=== PATIENT | male | born 1955 | race Hispanic/Latino ===

== ENCOUNTER 2024-05-19 14:26 | Emergency (ER) | payer MEDICARE ==
[~2024-05-19] VITALS: Ht 165.1 cm; Wt 87.1 kg
[2024-05-19 15:06] LABS: BASOPHILS # (AUTO) 0.04 K/uL (0.00-0.20); EOSINOPHILS # (AUTO) 0.26 K/uL (0.00-0.70); EOSINOPHILS % (AUTO) 6.2 % (0.0-8.0); HEMATOCRIT 40.4 % (42-54); IMMATURE GRANULOCYTE ABSOLUTE 0.03 K/uL (0-1); LYMPHOCYTES # (AUTO) 1.8 K/uL (1.0-4.8); LYMPHOCYTES % (AUTO) 41.6 % (21.0-51.0); MEAN CORPUSCULAR HEMOGLOBIN 30.3 pg (27.0-33.0); MEAN CORPUSCULAR HGB CONC 32.9 g/dL (32.0-36.0); MONOCYTES # (AUTO) 0.5 K/uL (0.1-1.0); MONOCYTES % (AUTO) 12.1 % (3.0-13.0); NEUTROPHILS # (AUTO) 1.6 K/uL (1.8-7.7); NEUTROPHILS % (AUTO) 38.4 % (40.0-77.0); PLATELET COUNT (AUTO) 209 K/uL (130-400); RED BLOOD CELL COUNT(AUTO) 4.39 MIL/uL (4.50-6.20); RED CELL DISTRIBUTION WIDTH 14.1 % (11.0-15.5); WHITE BLOOD COUNT (AUTO) 4.2 K/uL (4.8-10.8)
[2024-05-19 15:14] LABS: CREATININE 1.5 mg/dL (0.5-1.3)
[2024-05-19] MEDS ORDERED: METF-444 PO (15:24)
[2024-05-19] MEDS: INSULIN humuLIN R 100 UNIT/ML 3ML SQ ONE (15:27)
[2024-05-19 17:03] VITALS: BP 133/72; PULSE 76; RESP 18; TEMP 97.9; O2SAT 97
== END 2024-05-19 17:07 | disposition home or self-care (01) ==
LOC: EDH 14:26
DX: I10 Essential (primary) hypertension (principal); E11.65 Type 2 diabetes mellitus with hyperglycemia; Z79.84 Long term (current) use of oral hypoglycemic drugs; Z91.199 Patient's noncompliance with other medical treatment and regimen due to unspecified reason
CPT/HCPCS: 99283; 80048; 85025; 82948 ×2; 36415; J1815